=== PATIENT | female | born 1940 | race Caucasian/White ===

== ENCOUNTER 2017-07-28 12:54 | Outpatient (CLI) | payer MEDICARE, BC ==
--- NOTE | 2017-07-28 14:19 | MMO ---
BILATERAL SCREENING MAMMOGRAM: HISTORY: A 77-year-old female for screening mammography. COMPARISON: 07/02/16, 06/26/15, 06/25/14. FINDINGS: Bilateral MLO and CC views of the breasts show heterogeneously dense breast parenchyma, which may lo wer the sensitivity of mammography. There is no evidence of suspicious mass, suspicious clustered m icrocalcifications, or area of architectural distortion. Benign-appearing calcifications are seen i n both breasts. Vascular calcifications are seen. Interpretation of this mammogram was performed with the assistance of computer-aided detection. IMPRESSION: BI-RADS category 2 - benign findings. Annual screening mammography is recommended. POS: [facility]
== END 2017-07-28 12:55 | disposition home or self-care (01) ==
LOC: MAMMO 12:54
PROVIDERS: ATTEND Nurse Practitioner Family
DX: Z12.31 Encounter for screening mammogram for malignant neoplasm of breast (principal)
CPT/HCPCS: 77067; G0202

== ENCOUNTER 2018-06-07 11:06 | Outpatient (CLI) | payer MEDICARE, BC ==
--- NOTE | 2018-06-07 12:20 | RAD ---
CHEST 2 VIEWS: Date: 06/07/18 HISTORY: Fever. COMPARISON: 07/09/16. FINDINGS: Cardiac silhouette and pulmonary vasculature are unremarkable. Mediastinum midline with aortic calcif ication. Calcified granulomata are consistent with healed granulomatous disease. No confluent air spa ce consolidation, pneumothorax, or pleural fluid. IMPRESSION: 1. Atherosclerosis. 2. Chronic-type findings are stable. No active cardiopulmonary abnormalities are demonstrated. POS: [facility]
== END 2018-06-07 11:07 | disposition home or self-care (01) ==
LOC: RAD-FRANK 11:06
PROVIDERS: ATTEND Nurse Practitioner Family
DX: R50.9 Fever, unspecified (principal); I70.0 Atherosclerosis of aorta
CPT/HCPCS: 71046

== ENCOUNTER 2018-09-05 13:13 | Outpatient (CLI) | payer MEDICARE, BC | END 2018-09-05 13:14 | disposition home or self-care (01) | LOC: BICMAMMO 13:13 | PROVIDERS: ATTEND Nurse Practitioner Family | DX: Z12.31 Encounter for screening mammogram for malignant neoplasm of breast (principal); N64.89 Other specified disorders of breast | CPT/HCPCS: 77063; 77067 ==

== ENCOUNTER 2018-09-19 14:14 | Outpatient (CLI) | payer MEDICARE, BC | END 2018-09-19 14:15 | disposition home or self-care (01) | LOC: BICMAMMO 14:14 | PROVIDERS: ATTEND Nurse Practitioner Family | DX: R92.2 Inconclusive mammogram (principal) | CPT/HCPCS: 77065; G0279 ==

== ENCOUNTER 2019-03-15 13:45 | Outpatient (CLI) | payer MEDICARE, BC ==
--- NOTE | 2019-03-15 13:58 | RAD ---
EXAM: Lumbar spine: 2 views INDICATIONS: Low back pain COMPARISON: 09/15/2016 FINDINGS: Slight curvature to the left with apex at L2 to is stable from prior exam. Moderate degener ative changes in the lumbar spine again noted. Loss of disc space at all levels of lumbar spine again noted. Anterolateral osteophytes again noted at all levels. No evidence of spondylolisthesis. P rominent facet hypertrophy. IMPRESSION: Moderate degenerative changes lumbar spine as described. Not significantly changed from 2 016.
== END 2019-03-15 13:46 | disposition home or self-care (01) ==
LOC: RAD-FRANK 13:45
PROVIDERS: ATTEND Nurse Practitioner Family
DX: M54.5 Low back pain (principal); M47.816 Spondylosis without myelopathy or radiculopathy, lumbar region
CPT/HCPCS: 72100

== ENCOUNTER 2019-03-22 09:16 | Outpatient (CLI) | payer MEDICARE, BC ==
--- NOTE | 2019-03-22 11:07 | BD ---
DEXA SCAN: DATE: 03/22/2019. PROVIDED CLINICAL HISTORY: Postmenopausal screening. FINDINGS: Lumbar Spine: BMD (g/cm2) L1 0.997 T-Score: 0.1 L2 1.052 T-Score: 0.2 L3 1.057 T-Score: -0.2 L4 1.068 T-Score: 0.1 L1-L4 1.053 T-Score: 0 Femoral Neck: 0.643 T-Score: -1.9 Total Femur: 0.933 T-Score: -0.2 Ten-year fracture risk: Major osteoporotic fracture 15%. Hip fracture 4.3%. Compared to the prior study of 01/18/2017, there is statistically significant increase in bone mineral density in the left femoral neck. Impression: Calculated bone mineral density meets WHO criteria for osteopenia in the left femoral neck and places the patient at increased risk for fracture. POS: [facility]
== END 2019-03-22 09:17 | disposition home or self-care (01) ==
LOC: BICMAMMO 09:16
PROVIDERS: ATTEND Nurse Practitioner Family
DX: Z13.820 Encounter for screening for osteoporosis (principal); M85.88 Other specified disorders of bone density and structure, other site
CPT/HCPCS: 77080

== ENCOUNTER 2019-09-26 13:08 | Outpatient (CLI) | payer MEDICARE, BC ==
--- NOTE | 2019-09-26 15:24 | MMO ---
Bilateral MAMMO Bilat Screen [facility]. CLINICAL HISTORY: Patient is 79 years old and is seen for screening. The patient has no family history of breast cancer. The patient has no personal history of cancer. The patient has a history of right needle biopsy in 1980 - benign. VIEWS: The views performed were: bilateral craniocaudal with tomosynthesis and bilateral mediolateral oblique with tomosynthesis. FILMS COMPARED: The present examination has been compared to prior imaging studies performed at [facility] on 07/02/2016, 07/28/2017, 09/05/2018 and 09/19/2018. This study has been interpreted with the assistance of computer-aided detection. MAMMOGRAM FINDINGS: The breasts are heterogeneously dense, which could obscure a lesion on mammography. There are no suspicious masses, suspicious calcifications, or new areas of architectural distortion. IMPRESSION: THERE IS NO MAMMOGRAPHIC EVIDENCE OF MALIGNANCY. A ROUTINE FOLLOW-UP MAMMOGRAM IN 1 YEAR IS RECOMMENDED. THE RESULTS OF THIS EXAM WERE SENT TO THE PATIENT. ACR BI-RADS Category 1 - Negative MAMMOGRAPHY NOTE: 1. A negative mammogram report should not delay a biopsy if a dominant of clinically suspicious mass is present. 2. Approximately 10% to 15% of breast cancers are not detected by mammography. 3. Adenosis and dense breasts may obscure an underlying neoplasm. Reported by: VICTOR M WHITE MD Electonically Signed: [id number]
== END 2019-09-26 13:09 | disposition home or self-care (01) ==
LOC: BICMAMMO 13:08
PROVIDERS: ATTEND Nurse Practitioner Family
DX: Z12.31 Encounter for screening mammogram for malignant neoplasm of breast (principal)
CPT/HCPCS: 77063; 77067

== ENCOUNTER 2021-02-13 12:55 | Outpatient (CLI) | payer MEDICARE, BC ==
[2021-02-13 14:38] LABS: Bilirubin Neg (Negative); Blood, Urine 25 (Negative); Clarity Slightly Cloudy (Clear); Glucose, Urine (Dipstick) Normal (Negative); Ketone, Urine Negative (Negative); Leukocyte 500 (Negative); Nitrite Positive (Negative); Protein, Urine (Dipstick) Negative (Neg-Trace); Specific Gravity, Urine 1.015 (1.002-1.036); Urobilinogen Normal mg/dL (Less than 2)
[2021-02-13 14:51] LABS: RBC/HPF 0-3 HPF (0-3); WBC/HPF 21-50 HPF (0-3)
[2021-02-13 14:52] LABS: Bacteria/HPF 4+ HPF (None Seen); Squamous Epithelial 0-3 HPF (0-3)
[2021-02-13 15:09] LABS: #Eosinphils 0.1 10x3/uL (0.0-0.5); #Monocytes 0.5 10x3/uL (0.0-1.1); #Neutrophils 4.8 10x3/uL (1.5-8.4); %Basophils 0.3 % (0.0-2.0); %Eosinophils 0.8 % (0.0-6.0); %Lymphocytes 31.1 % (18.0-47.0); %Monocytes 6.5 % (0.0-10.0); Mean Corpuscular HGB CONC 31.7 g/dL (32.0-36.0); Mean Corpuscular Volume 91.5 fl (81.6-98.3); Mean Platelet Volume 9.7 fl (7.4-10.4); Platelet Count 213 10x3/uL (150-450); RBC Distribution Width 13.5 % (11.5-14.5); Red Blood Cell (RBC) Count 4.48 10x6/uL (3.90-5.03); White Blood Cell (WBC) Count 7.9 10x3/uL (3.5-10.5)
[2021-02-13 15:11] LABS: Anion Gap 15 mmol/L (10-20); BUN (Urea Nitrogen) 14 mg/dL (9.8-20.1); Calc. Creatinine Clearance 0 mL/min (70-130); Carbon Dioxide 25 mmol/L (23-31); Chloride 102 mmol/L (98-107); Glucose 88 mg/dL (83-110); Potassium 4.1 mmol/L (3.5-5.1); Sodium 138 mmol/L (136-145)
[2021-02-13 15:22] LABS: INR-International Normal Ratio 0.9
[2021-02-14 01:53] LABS: SARS-CoV-2 PCR by NAA Not Detected (NotDetected)
== END 2021-02-13 12:56 | disposition home or self-care (01) ==
LOC: LABBT 12:55
PROVIDERS: ATTEND Orthopaedic Surgery
DX: Z01.818 Encounter for other preprocedural examination (principal); M17.11 Unilateral primary osteoarthritis, right knee; Z20.822 Contact with and (suspected) exposure to COVID-19
CPT/HCPCS: 80048; 81001; 85025; 85610; 87081; 93005; U0003; U0005; 87635; 93010

== ENCOUNTER 2021-02-13 13:00 | Inpatient (IN) | payer MEDICARE, BC ==
[2021-02-18] MEDS ORDERED: Midazolam HCl 2 mg/2 ml Vial ONE ×2 (07:29→08:25)
[2021-02-18] MEDS ORDERED: Fentanyl 100 MCG/2 ML VIAL ONE ×5 (07:29→11:47)
[2021-02-18] MEDS ORDERED: Tranexamic Acid 1,000 MG/10 ML VIAL ONE (08:22)
[2021-02-18] MEDS ORDERED: Sodium Chloride 0.9% 100 ML ONE (08:22)
[2021-02-18] MEDS ORDERED: Vancomycin 1 GM/200 ML BAG ONE (08:22)
[2021-02-18] MEDS ORDERED: Fentanyl 100 MCG/2 ML VIAL SLOW IVP PRN ×2 (09:11→09:25)
[2021-02-18] MEDS ORDERED: Zolpidem Tartrate 5 MG TAB PO PRN ×2 (09:11→09:30)
[2021-02-18] MEDS ORDERED: Ondansetron PF 4 MG/2 ML Vial IVP PRN ×2 (09:11→09:30)
[2021-02-18] MEDS ORDERED: HYDROcodone/Acetaminophen 10/325 mg Tablet PO PRN ×2 (09:11)
[2021-02-18] MEDS ORDERED: Promethazine HCl 25 MG/ML VIAL IM PRN ×3 (09:11→10:37)
[2021-02-18] MEDS ORDERED: Acetaminophen 325 MG TAB PO PRN (09:11)
[2021-02-18] MEDS ORDERED: traMADol HCl 50 MG TAB PO PRN ×3 (09:11→09:30)
[2021-02-18] MEDS ORDERED: diphenhydrAMINE 25 MG CAP PO PRN (09:11)
[2021-02-18] MEDS ORDERED: Lisinopril 20 MG TAB PO PRN (09:12)
[2021-02-18] MEDS ORDERED: Ondansetron ODT 4 MG TAB PO PRN (09:12)
[2021-02-18] MEDS ORDERED: Meclizine HCl 25 MG TAB PO PRN (09:12)
[2021-02-18] MEDS ORDERED: Ropivacaine HCl/PF 250 ML in Premix Bag 1 BAG NERVE BLCK SCH (09:30)
[2021-02-18] MEDS ORDERED: Ropivacaine 2% HCl/PF (20 MG/10 ML VIAL) ONE (09:58)
[2021-02-18] MEDS ORDERED: Lidocaine 1% PF 5 ML VIAL ONE (09:58)
[2021-02-18] MEDS ORDERED: PROPOFOL 200 MG/20 ML VIAL ONE (09:58)
[2021-02-18] MEDS ORDERED: Dexamethasone 20 MG/5 ML VIAL ONE (09:58)
[2021-02-18] MEDS ORDERED: Ondansetron PF 4 MG/2 ML Vial ONE (09:58)
[2021-02-18] MEDS ORDERED: Bupivacaine PF 0.5% 30 ML VIAL ONE (09:58)
[2021-02-18] MEDS ORDERED: PACU-Morphine 4MG/ML VIAL SLOW IVP PRN (10:37)
[2021-02-18] MEDS ORDERED: Promethazine HCl 25 MG/ML VIAL SLOW IVP PRN (10:37)
[2021-02-18] MEDS ORDERED: Promethazine HCl 25 MG/ML VIAL ONE (12:07)
[2021-02-18] MEDS ORDERED: Ketorolac Tromethamine 30 MG/ML VIAL ONE (12:27)
[2021-02-18] MEDS: Ketorolac Tromethamine 30 MG/ML VIAL IVP SCH ×3 (12:30→23:22)
[2021-02-18] MEDS ORDERED: hydrALAZINE 20 MG/ML VIAL ONE (12:39)
[2021-02-18] MEDS ORDERED: HYDROcodone/Acetaminophen 10/325 mg Tablet ONE (13:51)
[2021-02-18] MEDS: HYDROcodone/Acetaminophen 10/325 mg Tablet PO PRN ×2 (14:15→19:49)
[2021-02-18] MEDS: CEFAZOLIN 2 GM in Premix Bag 1 BAG IVPB SCH ×2 (17:50→23:23)
[2021-02-18] MEDS: Sodium Chloride 0.9% 1,000 ML IV SCH ×2 (17:57→21:42)
[2021-02-18 19:44] VITALS: BMI 26.8
[2021-02-18] MEDS: traZODone HCl 50 MG TAB PO SCH (21:36)
[2021-02-18] MEDS: Simvastatin 10 MG TAB PO SCH (21:36)
[2021-02-18] MEDS: Aspirin 81 mg Enteric Coated Tablet PO SCH (21:36)
[2021-02-19 05:55] LABS: Hemoglobin 9.6 g/dL (12.0-16.0); Mean Corpuscular HGB CONC 32.6 g/dL (32.0-36.0); Mean Corpuscular Hemoglobin 30.2 pg (27.0-31.0); Mean Corpuscular Volume 92.5 fL (78.0-98.0); Mean Platelet Volume 6.9 fL (7.4-10.4); Platelet Count 180 thou/uL (130-400); RBC Distribution Width 12.3 % (11.5-14.5); Red Blood Cell (RBC) Count 3.18 mill/uL (4.20-5.40); White Blood Cell (WBC) Count 9.7 thou/uL (4.8-10.8)
[2021-02-19] MEDS: Sodium Chloride 0.9% 1,000 ML IV SCH ×2 (06:20→14:19)
[2021-02-19] MEDS: Ketorolac Tromethamine 30 MG/ML VIAL IVP SCH ×4 (06:20→23:19)
[2021-02-19] MEDS: Ferrous Gluconate 324 MG TAB PO SCH ×2 (08:09→16:12)
[2021-02-19] MEDS: Senokot S 8.6-50 MG TAB PO SCH ×2 (08:09→19:45)
[2021-02-19] MEDS: Aspirin 81 mg Enteric Coated Tablet PO SCH ×2 (08:09→19:45)
[2021-02-19] MEDS: Multivitamin W/ Minerals 1 TAB PO SCH (08:09)
[2021-02-19] MEDS: HYDROcodone/Acetaminophen 10/325 mg Tablet PO PRN ×2 (08:12→16:12)
[2021-02-19] MEDS ORDERED: Simvastatin 10 MG TAB PO SCH (09:00)
[2021-02-19] MEDS ORDERED: Aspirin 81 mg Enteric Coated Tablet PO SCH (09:00)
[2021-02-19] MEDS: Simvastatin 10 MG TAB PO SCH (19:45)
[2021-02-19] MEDS: traZODone HCl 50 MG TAB PO SCH (19:45)
[2021-02-20] MEDS: Ketorolac Tromethamine 30 MG/ML VIAL IVP SCH (05:58)
[2021-02-20] MEDS: Sodium Chloride 0.9% 1,000 ML IV SCH ×2 (06:20→10:25)
[2021-02-20] MEDS: Aspirin 81 mg Enteric Coated Tablet PO SCH (07:29)
[2021-02-20] MEDS: Ferrous Gluconate 324 MG TAB PO SCH (07:29)
[2021-02-20] MEDS: HYDROcodone/Acetaminophen 10/325 mg Tablet PO PRN ×2 (07:29→13:39)
[2021-02-20] MEDS: Senokot S 8.6-50 MG TAB PO SCH (07:29)
[2021-02-20] MEDS: Multivitamin W/ Minerals 1 TAB PO SCH (07:29)
[2021-02-20 08:10] LABS: Hemoglobin 9.5 g/dL (12.0-16.0); Mean Corpuscular HGB CONC 32.5 g/dL (32.0-36.0); Mean Corpuscular Volume 92.2 fL (78.0-98.0); Platelet Count 179 thou/uL (130-400); RBC Distribution Width 12.3 % (11.5-14.5); Red Blood Cell (RBC) Count 3.17 mill/uL (4.20-5.40); White Blood Cell (WBC) Count 8.2 thou/uL (4.8-10.8)
[2021-02-20 12:21] VITALS: BP 111/70; TEMP 98.2
== END 2021-02-20 13:55 | disposition home health service (06) | DRG 470 ==
LOC: SJJU 02-18 06:12 → SURG B 02-18 18:08
PROVIDERS: ADMIT Orthopaedic Surgery; ATTEND Orthopaedic Surgery
PROC: 0SRC0J9 Replacement of Right Knee Joint with Synthetic Substitute, Cemented, Open Approach (ICD-10-PCS; principal; 2021-02-18)
DX: M17.11 Unilateral primary osteoarthritis, right knee (principal); D62 Acute posthemorrhagic anemia; Z88.1 Allergy status to other antibiotic agents; Z88.5 Allergy status to narcotic agent; Z90.710 Acquired absence of both cervix and uterus; I10 Essential (primary) hypertension; E78.5 Hyperlipidemia, unspecified
CPT/HCPCS: 36415; 85027; C1713; C1776; J0360; J0690; J1100; J1885; J2250; J2405; J2550; J2704; J2795; J3010; J3370; J3490; S0020

== ENCOUNTER 2023-09-03 11:55 | Emergency (ER) | payer MEDICARE, BC ==
[2023-09-03 12:36] LABS: #Eosinphils 0.1 thou/uL (0.0-0.7); #Monocytes 0.5 thou/uL (0.11-0.59); #Neutrophils 4.8 thou/uL (1.40-6.50); %Basophils 0.4 % (0.0-1.0); %Eosinophils 0.7 % (0.0-10.0); %Lymphocytes 26.9 % (21.0-51.0); %Monocytes 6.6 % (0.0-10.0); %Neutrophils 65.1 % (42.0-75.0); Hematocrit 39.8 % (36.0-47.0); Hemoglobin 12.6 g/dL (12.0-16.0); Mean Corpuscular HGB CONC 31.7 g/dL (32.0-36.0); Mean Corpuscular Hemoglobin 28.2 pg (27.0-31.0); Mean Platelet Volume 9.5 fL (7.4-10.4); Platelet Count 236 10x3/uL (130-400); RBC Distribution Width 14.3 % (11.5-14.5); Red Blood Cell (RBC) Count 4.47 mill/uL (4.20-5.40); White Blood Cell (WBC) Count 7.3 10x3/uL (4.8-10.8)
[2023-09-03 13:30] LABS: ALT (SGPT) 7 U/L (8-55); AST (SGOT) 15 U/L (5-34); Albumin 4.4 g/dL (3.4-4.8); Alkaline Phosphatase 72 U/L (40-110); Anion Gap 14 mmol/L (10-20); BUN (Urea Nitrogen) 16 mg/dL (9.8-20.1); Bilirubin, Total 0.4 mg/dL (0.2-1.2); Calc. Creatinine Clearance 0 mL/min (70-130); Calcium 9.3 mg/dL (7.8-10.44); Carbon Dioxide 26 mmol/L (23-31); Chloride 102 mmol/L (98-107); Estimated GFR 66; Globulin 2.5 g/dL (2.4-3.5); Glucose 99 mg/dL (83-110); Potassium 4.5 mmol/L (3.5-5.1); Protein, Total 6.9 g/dL (5.8-8.1); Sodium 137 mmol/L (136-145)
[2023-09-03 13:35] LABS: Troponin I Less than 0.010 ng/mL (< 0.028)
== END 2023-09-03 14:34 | disposition home or self-care (01) ==
LOC: ERS 11:55
DX: I10 Essential (primary) hypertension (principal); E78.5 Hyperlipidemia, unspecified; Z79.899 Other long term (current) drug therapy; Z79.01 Long term (current) use of anticoagulants
CPT/HCPCS: 36415; 71045; 80053; 84484; 85025; 93005

== ENCOUNTER 2025-09-10 10:21 | Outpatient (CLI) | payer MEDICARE, BC | END 2025-09-10 10:22 | disposition home or self-care (01) | LOC: MRI 10:21 → BICMRI 10:22 | PROVIDERS: ATTEND Family Medicine Sports Medicine | DX: M54.16 Radiculopathy, lumbar region (principal); M70.62 Trochanteric bursitis, left hip; M48.061 Spinal stenosis, lumbar region without neurogenic claudication; M48.07 Spinal stenosis, lumbosacral region; M16.12 Unilateral primary osteoarthritis, left hip | CPT/HCPCS: 72148 ==